=== PATIENT | male | born 1970 | race Caucasian/White ===

== ENCOUNTER 2016-11-11 10:13 | Emergency (ER) | payer BC ==
[2016-11-11] MEDS ORDERED: NS 0.9% 1000 ML* 1,000 ML IV ONE (10:47)
[2016-11-11 11:14] LABS: Hematocrit 40 % (42-52); Mean Corpuscular HGB Conc 32 g/dl (31-36); Mean Corpuscular Hemoglobin 24 pg (27-31); Mean Corpuscular Volume 75 fL (80-94); Mean Platelet Volume 9 um3 (7.4-10.4); Red Blood Count 5.35 10^6/ul (4.0-5.4); Red Cell Distribution Width 19 % (10.5-15); White Blood Count 5.6 10^3/ul (3.5-10.8)
[2016-11-11 11:28] LABS: Albumin 4.2 g/dL (3.2-5.2); BUN/Creatinine Ratio 12.4 (8-20); Calcium 9.4 mg/dL (8.6-10.3); EGFR African American 97.4 (>60); EGFR Non-African American 75.7 (>60); Globulin 2.8 g/dL (2-4); Potassium 4.2 mmol/L (3.5-5.0); Total Bilirubin 0.5 mg/dL (0.2-1.0)
[2016-11-11] MEDS ORDERED: Iodixanol* (CONTRAST) 320 MG/ML 100 ML SDV IV ONE (12:12)
--- NOTE | 2016-11-11 13:15 | RAD ---
HISTORY: Neck pain COMPARISONS: None TECHNIQUE: Multiple contiguous axial CT scans were obtained of the head and neck After the administration of nonionic intravenous contrast timed to the systemic arterial phase of contrast enhancement. Coronal and sagittal multiplanar reformations are submitted for review. Multiple 3-D maximum intensity projection reconstructions are also submitted for review. FINDINGS: CTA NECK: AORTIC ARCH: There is a normal three-vessel branching pattern of the aortic arch. There is no ostial or proximal stenosis of the cephalic great vessels. RIGHT VERTEBRAL ARTERY: The right vertebral artery is patent along its course, without stenosis. LEFT VERTEBRAL ARTERY: The left vertebral artery is patent along its course, without stenosis. DOMINANCE: The vertebral arteries are codominant. RIGHT COMMON CAROTID ARTERY: The right common carotid artery is patent. The right carotid bifurcation occurs at C5 RIGHT INTERNAL CAROTID ARTERY: There is no right internal carotid artery stenosis by NASCET criteria. RIGHT EXTERNAL CAROTID ARTERY: The right external carotid artery is unremarkable. LEFT COMMON CAROTID ARTERY: The left common carotid artery is patent. The left carotid bifurcation occurs at C5 LEFT INTERNAL CAROTID ARTERY: There is no left internal carotid artery stenosis by NASCET criteria. LEFT EXTERNAL CAROTID ARTERY: The left external carotid artery is unremarkable. VENOUS CIRCULATION: The venous system is unremarkable. SALIVARY GLANDS: The parotid glands, submandibular glands, sublingual glands are normal. NASAL CAVITY/NASOPHARYNX: The nasal cavity and nasopharynx are normal. ORAL CAVITY/OROPHARYNX: The oral cavity is obscured by streak artifact from dental amalgam. The visualized oral cavity and oropharynx are unremarkable. LARYNGEAL APPARATUS/HYPOPHARYNX: The laryngeal apparatus and hypopharynx are normal. UPPER AIRWAY/UPPER ESOPHAGUS: The visualized upper airway and esophagus are normal. LUNG APICES: The lung apices are clear. THYROID GLAND: The thyroid gland is normal. LYMPH NODES: There is no lymphadenopathy by size criteria. BONES AND SOFT TISSUES: No bone or soft tissue abnormalities are noted. CTA HEAD: INTRACRANIAL CIRCULATION: There is no aneurysm, vascular malformation, occlusion, or stenosis of the visualized intracranial circulation. The anterior communicating artery complex is clear. Bilateral posterior communicating arteries are identified. VENOUS CIRCULATION: The venous system is unremarkable. PERFUSION: There is no obvious parenchymal perfusion deficit. HEMORRHAGE/INFARCT: There is no hemorrhage or acute infarct. MASSES/SHIFT: There is no mass or shift. EXTRA-AXIAL SPACES: There are no extra-axial fluid collections. SULCI AND VENTRICLES: The sulci and ventricles are normal in size and position for the patient's stated age. CEREBRUM: There are no focal parenchymal abnormalities. BRAINSTEM: There are no focal parenchymal abnormalities. CEREBELLUM: There are no focal parenchymal abnormalities. PARANASAL SINUSES: The paranasal sinuses are clear. ORBITS: The orbits are unremarkable. BONES AND SOFT TISSUE: Mild degenerative changes are noted OTHER: There is no abnormal enhancement. IMPRESSION: 1. NO INTERNAL CAROTID ARTERY STENOSIS BY NASCET CRITERIA. 2. NO ANEURYSM, VASCULAR MALFORMATION, OCCLUSION, OR STENOSIS OF THE VISUALIZED INTRACRANIAL CIRCULATION.. CPT II Codes: 3100F
--- NOTE | 2016-11-11 15:44 | ED ---
Alicia Krishnan Anna, scribed for Alanna Potter MD on 11/11/16 at 1045 . HPI Chest Pain - HPI Summary HPI Summary: Patient is a 46 y/o male coming to [facility] presenting with mid-sternal CP that began this morning at 0800. He describes the severity of the pain as 4/10. He felt dizzy this morning and was running errands when he began to feel the chest pain. The pain extended through his right neck and the top of his jaw on the right side. He felt some right-sided facial numbness at 0830. His face feels less numb now but does feel achy. He now has a GOINS. Denies Hx of headaches. 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 His history is significant for DM and smoking. - History of Current Complaint Chief Complaint: EDChestPainROMI Time Seen by Provider: 11/11/16 10:30 Hx Obtained From: Patient Onset/Duration: Started Hours Ago, Still Present Timing: Constant, Lasting Hours Initial Severity: Moderate Current Severity: Moderate Pain Intensity: 4 Pain Scale Used: 0-10 Numeric Chest Pain Location: Mid Sternal Chest Pain Radiates: Yes Chest Pain Radiates To:: Jaw, Neck - Allergy/Home Medications Allergies/Adverse Reactions: Allergies Allergy/AdvReac Type Severity Reaction Status Date / Time No Known Allergies Allergy Verified 06/01/15 09:59 PMH/Surg Hx/FS Hx/Imm Hx Endocrine/Hematology History: Reports: Hx Diabetes - INSULIN PUMP Cardiovascular History: Denies: Hx Hypertension, Hx Pacemaker/ICD History: Denies: Hx Renal Disease Musculoskeletal History: Denies: Hx Rheumatoid Arthritis, Hx Osteoporosis Sensory History: Denies: Hx Hearing Aid Psychiatric History: Reports: Hx Panic Disorder - ANXIETY - Surgical History Surgery Procedure, Year, and Place: VASECTOMY Infectious Disease History: No Infectious Disease History: Denies: Traveled Outside the [place] in Last 30 Days - Family History Known Family History: Positive: Cardiac Disease - Hx Mother, >age 55 - Social History 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 Lives: With Family - with and kids Alcohol Use: Weekly Hx Substance Use: No Substance Use Type: Reports: None Smoking Status (MU): Heavy Every Day Tobacco Smoker Type: Cigarettes Amount Used/How Often: 1/2 PK DAILY Review of Systems Positive: Chest Pain Positive: Arthralgia Neurological: Other - dizziness Positive: Headache, Numbness All Other Systems Reviewed And Are Negative: Yes Physical Exam Triage Information Reviewed: Yes Vital Signs On Initial Exam: Initial Vitals Temp Pulse Resp BP Pulse Ox 95.5 F 69 18 154/82 100 11/11/16 10:15 11/11/16 10:15 11/11/16 10:15 11/11/16 10:15 11/11/16 10:15 Vital Signs Reviewed: Yes Appearance: Positive: Well-Appearing, No Pain Distress Skin: Positive: Warm, Skin Color Reflects Adequate Perfusion, Dry Eyes: Positive: EOMI, TIMI ENT: Positive: Pharynx normal, TMs normal Neck: Positive: Supple, Nontender Respiratory/Lung Sounds: Positive: Clear to Auscultation, Breath Sounds Present Cardiovascular: Positive: RRR. Negative: Murmur, Rub, Other - gallop Abdomen Description: Positive: Nontender, Soft Bowel Sounds: Positive: Present Musculoskeletal: Positive: Strength/ROM Intact. Negative: Edema Left, Edema Right Neurological: Positive: Normal, Sensory/Motor Intact, Alert, Oriented to Person Place, Time, CN Intact II-III - II-XII Psychiatric: Positive: Affect/Mood Appropriate Diagnostics - Vital Signs Vital Signs Temp Pulse Resp BP Pulse Ox 11/11/16 10:33 97.7 F 66 18 128/76 100 11/11/16 10:30 66 20 126/76 99 11/11/16 10:24 73 99 11/11/16 10:23 128/76 11/11/16 10:15 95.5 F 69 18 154/82 100 - Laboratory Lab Results: Lab Results 11/11/16 11/11/16 11/11/16 Range/Units 10:30 10:30 10:30 WBC 5.6 (3.5-10.8) 10^3/ul RBC 5.35 (4.0-5.4) 10^6/ul Hgb 13.0 L (14.0-18.0) g/dl Hct 40 L (42-52) % MCV 75 L (80-94) fL MCH 24 L (27-31) pg MCHC 32 (31-36) g/dl RDW 19 H (10.5-15) % Plt Count 212 (150-450) 10^3/ul MPV 9 (7.4-10.4) um3 Neut % (Auto) 57.6 (38-83) % Lymph % (Auto) 28.5 (25-47) % [place] % (Auto) 11.1 H (1-9) % Eos % (Auto) 1.6 (0-6) % Baso % (Auto) 1.2 (0-2) % Absolute Neuts (auto) 3.2 (1.5-7.7) 10^3/ul Absolute Lymphs (auto) 1.6 (1.0-4.8) 10^3/ul Absolute Monos (auto) 0.6 (0-0.8) 10^3/ul Absolute Eos (auto) 0.1 (0-0.6) 10^3/ul Absolute Basos (auto) 0.1 (0-0.2) 10^3/ul Absolute Nucleated RBC 0 10^3/ul Nucleated RBC % 0.1 Sodium 134 (133-145) mmol/L Potassium 4.2 (3.5-5.0) mmol/L Chloride 101 (101-111) mmol/L Carbon Dioxide 29 (22-32) mmol/L Anion Gap 4 (2-11) mmol/L BUN 13 (6-24) mg/dL Creatinine 1.05 (0.67-1.17) mg/dL Est GFR ( Amer) 97.4 (>60) Est GFR (Non-Af Amer) 75.7 (>60) BUN/Creatinine Ratio 12.4 (8-20) Glucose 129 H (70-100) mg/dL POC Glucose (mg/dL) (74-106) mg/dL Lactic Acid 0.7 (0.5-2.0) mmol/L Calcium 9.4 (8.6-10.3) mg/dL Total Bilirubin 0.50 (0.2-1.0) mg/dL AST 15 (13-39) U/L ALT 15 (7-52) U/L Alkaline Phosphatase 105 H (34-104) U/L Troponin I 0.00 (<0.04) ng/mL Total Protein 7.0 (6.4-8.9) g/dL Albumin 4.2 (3.2-5.2) g/dL Globulin 2.8 (2-4) g/dL Albumin/Globulin Ratio 1.5 (1-3) 03/24/17 03/24/17 Range/Units 12:26 14:40 WBC (3.5-10.8) 10^3/ul RBC (4.0-5.4) 10^6/ul Hgb (14.0-18.0) g/dl Hct (42-52) % MCV (80-94) fL MCH (27-31) pg MCHC (31-36) g/dl RDW (10.5-15) % Plt Count (150-450) 10^3/ul MPV (7.4-10.4) um3 Neut % (Auto) (38-83) % Lymph % (Auto) (25-47) % [place] % (Auto) (1-9) % Eos % (Auto) (0-6) % Baso % (Auto) (0-2) % Absolute Neuts (auto) (1.5-7.7) 10^3/ul Absolute Lymphs (auto) (1.0-4.8) 10^3/ul Absolute Monos (auto) (0-0.8) 10^3/ul Absolute Eos (auto) (0-0.6) 10^3/ul Absolute Basos (auto) (0-0.2) 10^3/ul Absolute Nucleated RBC 10^3/ul Nucleated RBC % Sodium (133-145) mmol/L Potassium (3.5-5.0) mmol/L Chloride (101-111) mmol/L Carbon Dioxide (22-32) mmol/L Anion Gap (2-11) mmol/L BUN (6-24) mg/dL Creatinine (0.67-1.17) mg/dL Est GFR ( Amer) (>60) Est GFR (Non-Af Amer) (>60) BUN/Creatinine Ratio (8-20) Glucose (70-100) mg/dL POC Glucose (mg/dL) 85 (74-106) mg/dL Lactic Acid (0.5-2.0) mmol/L Calcium (8.6-10.3) mg/dL Total Bilirubin (0.2-1.0) mg/dL AST (13-39) U/L ALT (7-52) U/L Alkaline Phosphatase (34-104) U/L Troponin I 0.00 (<0.04) ng/mL Total Protein (6.4-8.9) g/dL Albumin (3.2-5.2) g/dL Globulin (2-4) g/dL Albumin/Globulin Ratio (1-3) Result Diagrams: 11/11/16 10:30 11/11/16 10:30 Lab Statement: Any lab studies that have been ordered have been reviewed, and results considered in the medical decision making process. - CT Head/Neck CTA CT Interpretation: No Acute Changes CT Interpretation Completed By: Radiologist - IMPRESSION: 1. NO INTERNAL CAROTID ARTERY STENOSIS BY NASCET CRITERIA. 2. NO ANEURYSM, VASCULAR MALFORMATION, OCCLUSION, OR STENOSIS OF THE VISUALIZED INTRACRANIAL CIRCULATION.. - EKG 1040 Cardiac Rate: NL - 67 bpm EKG Rhythm: Sinus Rhythm ST Segment: Normal Ectopy: None 1436 Cardiac Rate: NL - 56 bpm EKG Rhythm: Sinus Rhythm ST Segment: Normal Ectopy: None EKG Interpretation: No Qs. No ST abnormalities. Re-Evaluation - Re-Evaluation First Eval Re-Evaluation Time: 13:27 Comment: Discussed CTA results and plan of care with patient, including CXR and repeat troponin. Patient agrees with plan. Second Eval Re-Evaluation Time: 15:27 Comment: Discussed repeat troponin results and plans for a follow up stress test. Patient agrees with plan. Chest Pain Course/Dx - Course Course Of Treatment: pt with several symptoms this am with chest pain with left sided facial numbness and neck pain at 830 am cta head and neck negative, two trops and two ekgs negative. Pt aware he needs to get an outpt stress test. Case was run by Dr. Tracy of neurology who agrees with the care - Diagnoses Provider Diagnoses: Chest pain - Provider Notifications Discussed Care Of Patient With: Dr. Tracy (neurologist) at 1404. Agrees that patient will be safe to discharge. Discharge - Discharge Plan Condition: Stable Disposition: HOME Patient Education Materials: Cardiac Stress Test (GEN), Chest Pain (ED) Referrals: Sarwat Davis MD [Primary Care Provider] - Additional Instructions: Follow up with primary care physician within 48 hours for stress test. Return to the emergency department for changing or worsening symptoms. NIH Scale - NIH Scale Level of Consciousness: Alert/Keenly Responsive Ask Patient the Month and His/Her Age: Both Correct Ask Pt to Open/Close Eyes and Supervisor Delivery Department/Release Non-Paretic Hand: Both Correctly Best Gaze (Only Horizontal Eye Movement): Normal Visual Field Testing: No Visual Loss Facial Paresis-Pt to Smile & Close Eyes or Grimace Symmetry: Normal/Symmetrical Motor Function - Right Arm: No Drift-Holds 10 Seconds Motor Function - Left Arm: No Drift-Holds 10 Seconds Motor Function - Right Leg: No Drift-Holds 10 Seconds Motor Function - Left Leg: No Drift-Holds 10 Seconds Limb Ataxia-Must be out of Proportion to Weakness Present: Absent Sensory (Use Pinprick to Test Arms/Legs/Trunk/Face): Normal Best Language (Describe Picture, Name Items): No Aphasia Dysarthria (Read Several Words): Normal Extinction and Inattention: No Abnormality Total Score: 0 The documentation as recorded by the Alicia clinton Anna accurately reflects the service I personally performed and the decisions made by me, Alanna Potter MD.
[2016-11-11 16:00] VITALS: BP 126/69
== END 2016-11-11 16:01 | disposition home or self-care (01) ==
LOC: ED 10:13
DX: R07.9 Chest pain, unspecified (principal); R51 Headache; F17.210 Nicotine dependence, cigarettes, uncomplicated
CPT/HCPCS: 36415; 70496; 70498; 80053; 83605; 84484; 85025; 93005; 99283; Q9967

== ENCOUNTER 2017-03-19 16:57 | Emergency (ER) | payer BC ==
[2017-03-19 17:04] VITALS: BP 113/65
--- NOTE | 2017-03-19 17:05 | UC ---
Respiratory Complaint HPI - HPI Summary HPI Summary: 46 YEAR OLD MALE PRESENTS WITH COMPLAINS OF COUGH WORSE WHILE LYING DOWN. - History of Current Complaint Chief Complaint: UCRespiratory Stated Complaint: COUGH Time Seen by Provider: 03/19/17 17:04 - Allergies/Home Medications Allergies/Adverse Reactions: Allergies Allergy/AdvReac Type Severity Reaction Status Date / Time No Known Allergies Allergy Verified 06/01/15 09:59 PMH/Surg Hx/FS Hx/Imm Hx Previously Healthy: Yes - Surgical History Surgical History: Yes Surgery Procedure, Year, and Place: VASECTOMY - Family History Known Family History: Positive: Cardiac Disease - Hx Mother, >age 55 - Social History Alcohol Use: Weekly Substance Use Type: None Smoking Status (MU): Heavy Every Day Tobacco Smoker Type: Cigarettes Amount Used/How Often: 1/2 PK DAILY Household Exposure Type: Cigarettes Review of Systems Constitutional: Negative Skin: Negative Eyes: Negative ENT: Sore Throat, Nasal Discharge, Sinus Congestion, Sinus Pain/Tenderness Respiratory: Cough Cardiovascular: Negative Gastrointestinal: Negative Genitourinary: Negative Motor: Negative Neurovascular: Negative Musculoskeletal: Negative Neurological: Negative Psychological: Negative All Other Systems Reviewed And Are Negative: Yes Physical Exam Triage Information Reviewed: Yes Vital Signs: Initial Vital Signs Temp 37.2 C 03/19/17 16:59 Pulse 77 03/19/17 16:59 Resp 18 03/19/17 16:59 BP 113/65 03/19/17 16:59 Pulse Ox 99 03/19/17 16:59 Eye Exam: Normal ENT Exam: Normal Dental Exam: Normal Neck exam: Normal Neck: Positive: 1 Respiratory Exam: Normal Cardiovascular Exam: Normal Abdominal Exam: Normal Musculoskeletal Exam: Normal Neurological Exam: Normal Psychological Exam: Normal Skin Exam: Normal UC Diagnostic Evaluation - Laboratory O2 Sat by Pulse Oximetry: 99 Respiratory Course/Dx - Differential Dx/Diagnosis Provider Diagnoses: ALLERGIC RHINNITIS Discharge - Discharge Plan Condition: Stable Disposition: HOME Prescriptions: Amoxicillin/Clavulanate TAB* [Augmentin TAB 875*] 875 mg PO BID #20 tab LoraTADine TAB(NF) [Claritin 10 MG TAB(NF)] 10 mg PO DAILY #30 tab Magic M W2 Bg/Maal/Nyst/Lido* 15 ml SWISH SPIT QID #120 ml guaiFENesin/CODIEN 100MG-10MG* [Robitussin AC 100Mg-10Mg*] 5 ml PO Q6H PRN #120 udc MDD 20 ml PRN Reason: Cough Patient Education Materials: Pharyngitis (ED), Allergic Rhinitis (ED) Referrals: Sarwat Davis MD [Primary Care Provider] -
--- NOTE | 2017-03-19 18:05 | RAD ---
INDICATION: Cough COMPARISON: Most recent comparison chest x-rays dated April 28, 2015 TECHNIQUE: PA and lateral views of the chest were obtained. FINDINGS: The heart and mediastinum are normal in size and contour. The lungs are grossly clear. There is no evidence of large pleural effusion. Visualized bones are normal for the patient's age. There is no radiographic evidence of free air beneath the diaphragm IMPRESSION: No radiographic evidence of acute cardiopulmonary disease.
== END 2017-03-19 18:11 | disposition home or self-care (01) ==
LOC: UCEAST 16:57
DX: J30.9 Allergic rhinitis, unspecified (principal); F17.210 Nicotine dependence, cigarettes, uncomplicated
CPT/HCPCS: 71020; 99212; G0463

== ENCOUNTER 2017-08-06 13:55 | Emergency (ER) | payer BC ==
[2017-08-06 14:50] LABS: Hematocrit 38 % (42-52); Hemoglobin 12.5 g/dl (14.0-18.0); Mean Corpuscular HGB Conc 33 g/dl (31-36); Mean Corpuscular Hemoglobin 25 pg (27-31); Mean Corpuscular Volume 76 fL (80-94); Mean Platelet Volume 8 um3 (7.4-10.4); Red Blood Count 5.04 10^6/ul (4.0-5.4); Red Cell Distribution Width 18 % (10.5-15); White Blood Count 7.3 10^3/ul (3.5-10.8)
[2017-08-06 15:01] LABS: ALT 21 U/L (7-52); AST 20 U/L (13-39); Albumin 4.3 g/dL (3.2-5.2); Alkaline Phosphatase 108 U/L (34-104); Amylase 32 U/L (29-103); Anion Gap 7 mmol/L (2-11); BUN/Creatinine Ratio 9.6 (8-20); Blood Urea Nitrogen 10 mg/dL (6-24); CO2 Carbon Dioxide 26 mmol/L (22-32); Calcium 9.4 mg/dL (8.6-10.3); Chloride 100 mmol/L (101-111); Creatine Kinase 161 U/L (10-223); EGFR African American 98.4 (>60); EGFR Non-African American 76.5 (>60); Globulin 2.6 g/dL (2-4); Glucose 184 mg/dL (70-100); Lipase < 10 U/L (11.0-82.0); Potassium 3.7 mmol/L (3.5-5.0); Sodium 133 mmol/L (133-145); Total Protein 6.9 g/dL (6.4-8.9)
[2017-08-06] MEDS: Iodixanol* (CONTRAST) 320 MG/ML 100 ML SDV IV ONE ×2 (15:45→17:25)
--- NOTE | 2017-08-06 16:04 | RAD ---
HISTORY: Fall, pain COMPARISONS: November 11, 2016 TECHNIQUE: Multiple contiguous axial CT scans were obtained of the head without intravenous contrast. FINDINGS: HEMORRHAGE/INFARCT: There is no hemorrhage or acute infarct. MASSES/SHIFT: There is no mass or shift. EXTRA-AXIAL SPACES: There are no extra-axial fluid collections. SULCI AND VENTRICLES: The sulci and ventricles are normal in size and position for the patient's stated age. CEREBRUM: There are no focal parenchymal abnormalities. BRAINSTEM: There are no focal parenchymal abnormalities. CEREBELLUM: There are no focal parenchymal abnormalities. VESSELS: The vessels are grossly normal. PARANASAL SINUSES: The paranasal sinuses are clear. ORBITS: The orbits are unremarkable. BONES AND SOFT TISSUE: No bone or soft tissue abnormalities are noted. OTHER: None IMPRESSION: NO ACUTE INTRACRANIAL PATHOLOGY.
--- NOTE | 2017-08-06 16:06 | RAD ---
HISTORY: Fall, pain, trauma COMPARISONS: None TECHNIQUE: Multiple contiguous axial CT scans were obtained of the cervical spine without intravenous contrast, with coronal and sagittal multiplanar reformations. FINDINGS: BRAIN: The visualized brain is unremarkable CENTRAL CANAL: Evaluation of the central canal is limited on CT technique, however there is no obvious canalicular mass or epidural hemorrhage. ALIGNMENT: There is straightening of the normal cervical lordosis. VERTEBRAL BODIES: The odontoid process is intact. The atlantoaxial intervals are symmetric. The vertebral bodies are normal in attenuation, without fracture. There is anterolateral marginal osteophyte formation at C6-C7. JOINTS: There is osteoarthritis of the atlantoaxial articulation and to lesser extent of the uncovertebral articulations. MUSCULATURE: Normal INTERVERTEBRAL DISCS: There is diffuse loss of intervertebral disc height. AXIAL IMAGES: On axial images, there is no osseous neural foraminal narrowing or central canal stenosis. SOFT TISSUES: The visualized soft tissues of the neck are unremarkable. The prevertebral fat stripe is preserved. OTHER: None. IMPRESSION: 1. STRAIGHTENING OF THE CERVICAL LORDOSIS. 2. MILD DEGENERATIVE DISC DISEASE AND OSTEOARTHRITIS, MOST PRONOUNCED AT C6-C7. 3. NO ACUTE OSSEOUS INJURY TO THE CERVICAL SPINE
--- NOTE | 2017-08-06 16:32 | RAD ---
HISTORY: Fall, left rib pain COMPARISONS: March 19, 2017 VIEWS: 1: frontal portable view of the chest at 4:18 PM FINDINGS: LINES AND TUBES: None. CARDIOMEDIASTINAL SILHOUETTE: The cardiomediastinal silhouette is normal for portable technique. PLEURA: The costophrenic angles are sharp. No pleural abnormalities are noted. LUNG PARENCHYMA: The lungs are clear. ABDOMEN: The upper abdomen is clear. There is no subphrenic gas. BONES AND SOFT TISSUES: No bone or soft tissue abnormalities are noted. IMPRESSION: NO ACTIVE CARDIOPULMONARY DISEASE.
[2017-08-06 16:38] LABS: Urine Bilirubin Negative (Negative); Urine Glucose Negative (Negative); Urine Nitrite Negative (Negative)
[2017-08-06] MEDS ORDERED: LORazepam INJ* 2 MG/ML 1 ML VIAL IV PUSH ONE (16:39)
--- NOTE | 2017-08-06 17:47 | RAD ---
HISTORY: Fall from ladder, left-sided rib pain COMPARISONS: None TECHNIQUE: Multiple contiguous axial CT scans were obtained of the chest, abdomen, and pelvis after the administration of intravenous contrast. Coronal and sagittal multiplanar reformations are submitted for review.. Oral contrast was not administered. Delayed images were obtained through the abdomen and pelvis. FINDINGS: CHEST NECK AND THYROID: The lower neck and thyroid are unremarkable. CHEST WALL: There is no lower cervical, axillary, or supraclavicular lymphadenopathy by size criteria. HEART AND PERICARDIUM: The heart is unremarkable. AORTA AND PULMONARY VASCULATURE: The aorta and pulmonary vasculature are normal. MEDIASTINUM: There is no mediastinal lymphadenopathy by size criteria. KAT: There is no hilar lymphadenopathy by size criteria. AIRWAY AND ESOPHAGUS: The airway is unremarkable, without endobronchial filling defect. The esophagus is grossly normal. LUNG PARENCHYMA: The lungs are clear. PLEURA: No pleural abnormalities are noted. BONES AND SOFT TISSUES: Minimal degenerative changes are noted. ABDOMEN/PELVIS: LIVER: The liver is normal in shape, size, contour, and attenuation. BILE DUCTS: There is no intrahepatic or extrahepatic biliary dilatation. GALLBLADDER: The gallbladder is normal, without pericholecystic inflammatory change. PANCREAS: The pancreas is normal, without mass or ductal dilatation. SPLEEN: Normal in size and appearance. UPPER GI TRACT: Evaluation of the gastrointestinal tract is limited by incomplete gastric distention. The upper GI tract is unremarkable. SMALL BOWEL & MESENTERY: The small bowel is normal in contour, course, and caliber. There is no obstruction or dilatation. COLON: The colon is normal in contour, course, caliber. There is no pericolonic inflammatory change. ADRENALS: Normal bilaterally. KIDNEYS: A small renal cyst is noted on the right. There is no hydronephrosis or nephrolithiasis. BLADDER: The bladder is smooth in contour. PELVIC ORGANS: The prostate gland is normal. The seminal vesicles are symmetric. AORTA: The aorta is normal. IVC: Unremarkable LYMPH NODES: There is no lymphadenopathy by size criteria. ABDOMINAL WALL: There is no evidence for abdominal wall hernia. BONES AND SOFT TISSUES: There is grade 2 anterolisthesis of L5 on S1 with bilateral pars defects. OTHER: There is no free intraperitoneal fluid or free intraperitoneal gas. There is no active arterial extravasation. IMPRESSION: SPONDYLOLYSIS WITH SPONDYLOLISTHESIS AT L5-S1. NO ACUTE CT PATHOLOGY OF THE CHEST, ABDOMEN, OR PELVIS.
[2017-08-06] MEDS ORDERED: Cyclobenzaprine TAB* 10 MG PO ONE (19:09)
[2017-08-06] MEDS ORDERED: HYDROcodone/ACETAMIN 5-325 MG* 1 TAB PO ONE ×2 (19:10→19:12)
[2017-08-06 19:30] VITALS: BP 110/76
--- NOTE | 2017-08-06 20:27 | ED ---
Solomon Krishnan Gabriel, scribed for Leslie Washington MD on 08/06/17 at 1611 . 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 The patient rates the pain 6/10 in severity. Patient reports right sided rib.. Patient states he was hanging [place] lights and fell off a ladder about 4 feet above the ground. Patient was diagnosed with type I DM when he was 29 years old. He has previously been in DKA. Current vitals are BP of 141 /92 and a pulse of 99. - History of Current Complaint Chief Complaint: EDTraumaMultiple Stated Complaint: FALL Time Seen by Provider: 08/06/17 14:03 Hx Obtained From: Patient Mechanism of Injury: Fall Ambulatory at the Scene: Yes Loss of Consciousness: no loss of consciousness Onset/Duration: Still Present Onset of Pain: Immediate Onset Severity: Moderate Current Severity: Moderate Pain Intensity: 6 Pain Scale Used: 0-10 Numeric Location: Abdomen/Pelvis - rib pain Aggravating Factor(s): Nothing Alleviating Factor(s): Nothing Associated Signs & Symptoms: Positive: Other: - pain due to fall - Allergy/Home Medications Allergies/Adverse Reactions: Allergies Allergy/AdvReac Type Severity Reaction Status Date / Time No Known Allergies Allergy Verified 04/05/17 13:20 PMH/Surg Hx/FS Hx/Imm Hx Previously Healthy: No Endocrine/Hematology History: Reports: Hx Diabetes - INSULIN PUMP, type 1 dm Cardiovascular History: Denies: Hx Hypertension, Hx Pacemaker/ICD, Other Cardiovascular Problems/ Disorders History: Denies: Hx Renal Disease Musculoskeletal History: Denies: Hx Rheumatoid Arthritis, Hx Osteoporosis Sensory History: Denies: Hx Hearing Aid Psychiatric History: Reports: Hx Panic Disorder - PANIC/ANXIETY - Surgical History Surgery Procedure, Year, and Place: VASECTOMY Infectious Disease History: No Infectious Disease History: Denies: Traveled Outside the [place] in Last 30 Days - Family History Known Family History: Positive: Cardiac Disease - Hx Mother, >age 55 - Social History Alcohol Use: Weekly Hx Substance Use: No Substance Use Type: Reports: None Hx Tobacco Use: Yes - X'S 25 YRS Smoking Status (MU): Heavy Every Day Tobacco Smoker Type: Cigarettes Amount Used/How Often: 1/2 PK DAILY Review of Systems Negative: Fever Positive: Other - right sided rib pain All Other Systems Reviewed And Are Negative: Yes Physical Exam - Summary Physical Exam Summary: Appearance: Well-appearing, moderate pain distress, Well-nourished Skin: Warm, color reflects adequate perfusion Head: Normal Head/Face Eyes: Conjunctiva clear ENT: Normal appearance Neck: Supple Respiratory: Lungs clear, Normal breath sounds, no respiratory distress Cardio: RRR, No murmur, pulses normal, brisk capillary refill Abdomen: soft, nontender Bowel sounds: present Musculoskeletal: Strength Intact/ ROM intact, muscles are spasming Neuro: Alert, muscle tone normal, ED: facial symmetry, speech normal, sensory/ motor intact Detailed Neuro Exam: A&Ox3, CN II-XII intact, Motor function 5/5, Sensations intact, Gait WNL Psychological: Normal Triage Information Reviewed: Yes Vital Signs On Initial Exam: Initial Vitals Temp Pulse Resp BP Pulse Ox 97.3 F 73 18 119/65 99 08/06/17 14:04 08/06/17 14:04 08/06/17 14:04 08/06/17 14:04 08/06/17 14:04 Vital Signs Reviewed: Yes Diagnostics - Vital Signs Vital Signs Temp Pulse Resp BP Pulse Ox 08/06/17 15:30 16 112/66 08/06/17 15:00 17 115/68 08/06/17 14:30 16 99/61 08/06/17 14:28 12 08/06/17 14:27 102/60 08/06/17 14:04 97.3 F 73 18 119/65 99 - Laboratory Lab Results: Lab Results 08/06/17 08/06/17 08/06/17 Range/Units 14:08 14:33 14:33 WBC 7.3 (3.5-10.8) 10^3/ul RBC 5.04 (4.0-5.4) 10^6/ul Hgb 12.5 L (14.0-18.0) g/dl Hct 38 L (42-52) % MCV 76 L (80-94) fL MCH 25 L (27-31) pg MCHC 33 (31-36) g/dl RDW 18 H (10.5-15) % Plt Count 208 (150-450) 10^3/ul MPV 8 (7.4-10.4) um3 Neut % (Auto) 62.6 (38-83) % Lymph % (Auto) 27.3 (25-47) % [place] % (Auto) 7.5 (1-9) % Eos % (Auto) 1.5 (0-6) % Baso % (Auto) 1.1 (0-2) % Absolute Neuts (auto) 4.6 (1.5-7.7) 10^3/ul Absolute Lymphs (auto) 2.0 (1.0-4.8) 10^3/ul Absolute Monos (auto) 0.5 (0-0.8) 10^3/ul Absolute Eos (auto) 0.1 (0-0.6) 10^3/ul Absolute Basos (auto) 0.1 (0-0.2) 10^3/ul Absolute Nucleated RBC 0 10^3/ul Nucleated RBC % 0 INR (Anticoag Therapy) (0.77-1.02) Sodium 133 (133-145) mmol/L Potassium 3.7 (3.5-5.0) mmol/L Chloride 100 L (101-111) mmol/L Carbon Dioxide 26 (22-32) mmol/L Anion Gap 7 (2-11) mmol/L BUN 10 (6-24) mg/dL Creatinine 1.04 (0.67-1.17) mg/dL Est GFR ( Amer) 98.4 (>60) Est GFR (Non-Af Amer) 76.5 (>60) BUN/Creatinine Ratio 9.6 (8-20) Glucose 184 H (70-100) mg/dL POC Glucose (mg/dL) 189 H (70-100) mg/dL Lactic Acid (0.5-2.0) mmol/L Calcium 9.4 (8.6-10.3) mg/dL Total Bilirubin 0.70 (0.2-1.0) mg/dL AST 20 (13-39) U/L ALT 21 (7-52) U/L Alkaline Phosphatase 108 H (34-104) U/L Total Creatine Kinase 161 (10-223) U/L Troponin I 0.00 (<0.04) ng/mL Total Protein 6.9 (6.4-8.9) g/dL Albumin 4.3 (3.2-5.2) g/dL Globulin 2.6 (2-4) g/dL Albumin/Globulin Ratio 1.7 (1-3) Amylase 32 (29-103) U/L Lipase < 10 L (11.0-82.0) U/L Blood Type Antibody Screen 08/06/17 08/06/17 08/06/17 Range/Units 14:33 14:33 14:33 WBC (3.5-10.8) 10^3/ul RBC (4.0-5.4) 10^6/ul Hgb (14.0-18.0) g/dl Hct (42-52) % MCV (80-94) fL MCH (27-31) pg MCHC (31-36) g/dl RDW (10.5-15) % Plt Count (150-450) 10^3/ul MPV (7.4-10.4) um3 Neut % (Auto) (38-83) % Lymph % (Auto) (25-47) % [place] % (Auto) (1-9) % Eos % (Auto) (0-6) % Baso % (Auto) (0-2) % Absolute Neuts (auto) (1.5-7.7) 10^3/ul Absolute Lymphs (auto) (1.0-4.8) 10^3/ul Absolute Monos (auto) (0-0.8) 10^3/ul Absolute Eos (auto) (0-0.6) 10^3/ul Absolute Basos (auto) (0-0.2) 10^3/ul Absolute Nucleated RBC 10^3/ul Nucleated RBC % INR (Anticoag Therapy) 0.94 (0.77-1.02) Sodium (133-145) mmol/L Potassium (3.5-5.0) mmol/L Chloride (101-111) mmol/L Carbon Dioxide (22-32) mmol/L Anion Gap (2-11) mmol/L BUN (6-24) mg/dL Creatinine (0.67-1.17) mg/dL Est GFR ( Amer) (>60) Est GFR (Non-Af Amer) (>60) BUN/Creatinine Ratio (8-20) Glucose (70-100) mg/dL POC Glucose (mg/dL) (70-100) mg/dL Lactic Acid 2.0 (0.5-2.0) mmol/L Calcium (8.6-10.3) mg/dL Total Bilirubin (0.2-1.0) mg/dL AST (13-39) U/L ALT (7-52) U/L Alkaline Phosphatase (34-104) U/L Total Creatine Kinase (10-223) U/L Troponin I (<0.04) ng/mL Total Protein (6.4-8.9) g/dL Albumin (3.2-5.2) g/dL Globulin (2-4) g/dL Albumin/Globulin Ratio (1-3) Amylase (29-103) U/L Lipase (11.0-82.0) U/L Blood Type A Positive Antibody Screen Negative Result Diagrams: 08/06/17 14:33 08/06/17 14:33 Lab Statement: Any lab studies that have been ordered have been reviewed, and results considered in the medical decision making process. - Radiology CXR Radiology Interpretation Completed By: Radiologist - NO ACTIVE CARDIOPULMONARY DISEASE. ED physician has reviewed this radiology report. - CT CT brain CT Interpretation Completed By: Radiologist - NO ACUTE INTRACRANIAL PATHOLOGY. ED physician has reviewed this radiology report. CT C-spine CT Interpretation Completed By: Radiologist - STRAIGHTENING OF THE CERVICAL LORDOSIS. 2. MILD DEGENERATIVE DISC DISEASE AND OSTEOARTHRITIS, MOST PRONOUNCED AT C6-C7. 3. NO ACUTE OSSEOUS INJURY TO THE CERVICAL SPINE ED physician has reviewed this radiology report. CT ABD/Pelvis CT Interpretation Completed By: Radiologist - SPONDYLOLYSIS WITH SPONDYLOLISTHESIS AT L5-S1. NO ACUTE CT PATHOLOGY OF THE CHEST, ABDOMEN, OR PELVIS. ED physician has reviewed this radiology report. - EKG 1440 Cardiac Rate: NL EKG Rhythm: Sinus Rhythm - at 72 BPM EKG Interpretation: Normal AV/IV CT, normal QTc, negative axis minus 30, LAD EKG Comparison: No Significant Change - in comparison with EKG from 11/11/16 Discharge - Discharge Plan Condition: Stable Disposition: HOME Prescriptions: Cyclobenzaprine TAB* [Flexeril 10 MG TAB*] 10 mg PO TID PRN #20 tab PRN Reason: Pain HYDROcodone/ACETAMIN 5-325 MG* [Beason 5-325 TAB*] 1 tab PO Q4H PRN #12 tab MDD 6 PRN Reason: Pain Patient Education Materials: Rib Contusion (ED) Referrals: Sarwat Davis MD [Primary Care Provider] - Additional Instructions: Your CT's did not show any fractures or serious abnormalities. Follow up with Dr. Davis. Do deep breaths every hour while awake to prevent pneumonia. Return to the ER if any new or worsening symptoms. The documentation as recorded by the Solomon clinton Gabriel accurately reflects the service I personally performed and the decisions made by me, Leslie Washington MD.
== END 2017-08-06 19:35 | disposition home or self-care (01) ==
LOC: ED 13:55
DX: R07.81 Pleurodynia (principal); F17.210 Nicotine dependence, cigarettes, uncomplicated
CPT/HCPCS: 36415; 70450; 71010; 71260; 72125; 74177; 80053; 81003; 82150; 82550; 83605; 83690; 84484; 85025; 85610; 86850; 86900; 86901; 93005; 96374; 99283; A9270-GY; J2060; Q9967

== ENCOUNTER 2019-07-29 07:35 | Emergency (ER) | payer BC ==
[2019-07-29 07:49] VITALS: BP 141/80
--- NOTE | 2019-07-29 08:17 | UC ---
Cardiac HPI - HPI Summary HPI Summary: Mr. Zamora started with 'tight' chest pain in the right parasternal border radiating up into his neck about 20 minutes prior to my seeing him. He was driving from his home in [place] to his job and [place] and stopped at the [employer]. He did not have any shortness of breath but felt flushed, diaphoretic and like he might pass out. He was not nauseated. He is feeling a little bit better by the time I see him although still had some anterior chest pain in the neck pain. - History of Current Complaint Chief Complaint: UCChestPain Stated Complaint: CHEST PAIN Hx Obtained From: Patient Onset/Duration: Sudden Onset Timing: Constant Initial Severity: Moderate Current Severity: Mild Pain Intensity: 2 Chest Pain Location: Mid Sternal, Right Anterior Character: Tightness Aggravating Factor(s): Nothing Alleviating Factor(s): Nothing Associated Signs & Symptoms: Positive: Diaphoresis - Lightheaded - Allergy/Home Medications Allergies/Adverse Reactions: Allergies Allergy/AdvReac Type Severity Reaction Status Date / Time No Known Allergies Allergy Verified 07/29/19 07:49 Home Medications: Home Medications Desvenlafaxine(NF) [Pristiq(NF)] 100 mg PO DAILY 07/29/19 [History Confirmed 05/09] chlordiazePOXIDE CAP* [Librium CAP*] 5 mg PO DAILY WITH MEAL 07/29/19 [History Confirmed 07/29/19] PMH/Surg Hx/FS Hx/Imm Hx Previously Healthy: Yes Endocrine History: Diabetes - Type I for at least 30 years. Taking insulin pump - Surgical History Surgical History: Yes Surgery Procedure, Year, and Place: VASECTOMY - Family History Known Family History: Positive: Cardiac Disease - Hx Mother, >age 55 - Social History Alcohol Use: Weekly Substance Use Type: None Smoking Status (MU): Heavy Every Day Tobacco Smoker Type: Cigarettes Amount Used/How Often: 1/2 PK DAILY Household Exposure Type: Cigarettes Review of Systems All Other Systems Reviewed And Are Negative: Yes Respiratory: Positive: Negative Cardiovascular: Positive: Chest Pain Gastrointestinal: Positive: Negative Motor: Positive: Negative Musculoskeletal: Positive: Negative Is Patient Immunocompromised?: No Physical Exam - Summary Physical Exam Summary: He is nontoxic in appearance with stable vital signs Triage Information Reviewed: Yes Appearance: Well-Appearing Vital Signs: Initial Vital Signs Temp 97.5 F 07/29/19 07:45 Pulse 78 07/29/19 07:45 Resp 20 07/29/19 07:45 BP 141/80 07/29/19 07:45 Pulse Ox 98 07/29/19 07:45 Vital Signs Reviewed: Yes ENT: Positive: Normal ENT inspection Neck: Positive: Supple - Mild right superior trapezius tenderness Respiratory Exam: Other - mild right parasternal tenderness Respiratory: Positive: Lungs clear, Normal breath sounds, No respiratory distress, No accessory muscle use Cardiovascular: Positive: RRR Abdomen Description: Positive: Nontender - . There is Musculoskeletal Exam: Normal Neurological Exam: Normal Diagnostics - EKG Cardiac Rate: NL Cardiac Rhythm: Sinus: Normal Ectopy: None ST Segment: Normal EKG Comparison: No Significant Change - Assessment/Plan Course Of Treatment: His EKG indicates no acute pathology. This may be a musculoskeletal issue however I have no means to evaluate chest pain here at the [facility]. I recommended that we transfer him over to the hospital by ambulance. He did not want to go by ambulance and insisted on driving. I warned him that he could worsen or cause a car accident injuring other people. I recommended he call 911 if she developed any new symptoms or worsened. - Clinical Impression Provider Diagnosis: Chest pain Discharge ED - Sign-Out/Discharge Documenting (check all that apply): Patient Departure All imaging exams completed and their final reports reviewed: No Studies - Discharge Plan Condition: Stable Disposition: HOME-RECOMMEND TO ED Patient Education Materials: Chest Pain (ED) Referrals: Sarwat Davis MD [Primary Care Provider] - Additional Instructions: Please go immediately to the emergency department. You are condition is potentially life threatening. If you change your mind about driving or feel worse please call 911. - Billing Disposition and Condition Condition: STABLE Disposition: Home-Recommend to ED
--- OUTSIDE RECORDS SUMMARY | 2019-07-29 09:18 | XMS REPORT | Continuity of Care Document ---
:1970 External Reference #:[id number] Author Name JAMIN Bell (transmitted by agent of provider Radha Arriola) Address [address] [place] [id number] Care Team Providers Name Role Phone Sarwat Davis MD - Endocrinology, Care Team Information Setup Technician [phone] Diabetes & Metabolism Problems Active Problems Provider Date FH: Angina in 1st degree female Analia Villatoro M.D. Onset: 11/21/2017 relative <65 years Neck pain Mp Chávez M.D. Onset: 04/21/2017 Atrioventricular block, second degree Analia Villatoro M.D. Onset: 02/16/2016 Tobacco use Analia Villatoro M.D. Onset: 02/16/2016 [place] ECHO Schedule Onset: 05/03/2012 Chest pain Eugenia Espino M.D. Onset: 01/31/2012 Electrocardiogram abnormal Eugenia Espino M.D. Onset: 01/31/2012 Social History Type Date Description Comments Sex Unknown Tobacco Use Start: Unknown current cigarette smoker Smoking Status Reviewed: 06/06/19 current cigarette smoker ETOH Use consumes 1 six pack per week Tobacco Use Start: Unknown Patient is a current started smoking at smoker, smokes every age 16, smokes 1/2 day ppd Recreational Drug Use Denies Drug Use Exercise Type/Frequency Does not exercise Allergies, Adverse Reactions, Alerts Description No Known Drug Allergies Medications Active Medications SIG Qnty Indications Ordering Date Provider Lorazepam 1 Tab by mouth Unknown 1mg Tablets twice a day as needed Ibuprofen 1 po tid prn Unknown 200mg Multivitamins 1 by mouth every Unknown Capsules day Humalog via insulin pump Unknown 100Unit/ML Solution as directed Cartridge Ventolin HFA as needed Unknown 108(90Base) mcg/Act Aerosol Modafinil 1 tablet po Amandeep Arriola, 100mg Tablets daily Levothyroxine Sodium 1 tablet po Pravin Enrike, 50mcg daily PIZZA CHEF Tablets Desvenlafaxine Succinate take 1 tablet by Unknown ER mouth once daily 100mg Tablets ER 24HR Chlordiazepoxide HCL 2 cap po twice Amandeep Arriola, 25mg daily MD Capsules Medications Administered in Office Medication SIG Qnty Indications Ordering Provider Date Depomedrol 40MG Susan Savage M.D. 03/23/2017 Injection Immunizations Description No Information Available Vital Signs Date Vital Result Comment 06/06/2019 8:47am Height 72 inches 6'0" Weight 220.00 lb Heart Rate 93 /min BP Systolic 130 mmHg BP Diastolic 82 mmHg Respiratory Rate 18 /min Pain Level 1 BMI (Body Mass Index) 29.8 kg/m2 03/01/2019 1:06pm Height 72 inches 6'0" Weight 223.00 lb with shoes Heart Rate 88 /min BP Systolic Sitting 150 mmHg Lue reg cuff BP Diastolic Sitting 88 mmHg Lue reg cuff BP Systolic Standing 132 mmHg Lue reg cuff BP Diastolic Standing 80 mmHg Lue reg cuff Respiratory Rate 17 /min BMI (Body Mass Index) 30.2 kg/m2 Ejection Fraction 65% date 04/24/12 ECHO Results Description No Information Available Procedures Date Code Description Status 03/01/2019 54051 EKG Tracing & Interpretation Completed Medical Devices Description No Information Available Encounters Type Date Location Provider Dx Diagnosis Office Visit 03/01/2019 [facility] Analia Villatoro, Z82.49 Family hx of 1:10p Of Ofelia Maldonado ischem heart dis and oth dis of the circ sys Z72.0 Tobacco use E10.8 Type 1 diabetes mellitus with unspecified complications I95.1 Orthostatic hypotension H93.11 Tinnitus, right ear Assessments Date Code Description Provider 06/06/2019 M20.012 [place] finger of left finger(s) Rachel Quiroz RPA-C 03/01/2019 Z82.49 Family history of ischemic heart disease and Analia Villatoro M.D. other diseases 03/01/2019 Z72.0 Tobacco use Analia Villatoro M.D. 03/01/2019 E10.8 Type 1 diabetes mellitus with unspecified Analia Villatoro M.D. complications 03/01/2019 I95.1 Orthostatic hypotension Analia Villatoro M.D. 03/01/2019 H93.11 Tinnitus, right ear Analia Villatoro M.D. Plan of Treatment Future Appointment(s):07/03/2019 1:00 pm - Susan Savage M.D. at [facility] at [id number]/06/2019 - Rachel Quiroz, [facility]-CM20.012 [place] finger of left finger(s)Follow up:Follow up: 4 weeks Functional Status Description No Information Available Mental Status Description No Information Available Referrals Description No Information Available
--- OUTSIDE RECORDS SUMMARY | 2019-07-29 09:18 | XMS REPORT | Continuity of Care Document ---
:1970 External Reference #:[id number] Author Name Susan Savage M.D. 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 Onset: 11/21/2017 relative <65 years Neck pain Mp Chávez M.D. Onset: 04/21/2017 Atrioventricular block, second degree Analia Villatoro M.D. Onset: 02/16/2016 Tobacco use Aanlia Villatoro M.D. Onset: 02/16/2016 [place] [facility] Schedule Onset: 05/03/2012 Chest pain Eugenia Espino M.D. Onset: 01/31/2012 Electrocardiogram abnormal Eugenia Espino M.D. 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 03/23/2017 Injection Immunizations Description No Information Available Vital Signs Date Vital Result Comment 07/03/2019 1:18pm Height 72 inches 6'0" Weight 226.75 lb Heart Rate 72 /min BP Systolic 148 mmHg BP Diastolic 74 mmHg Respiratory Rate 16 /min Body Temperature 98.1 F Pain Level 3 BMI (Body Mass Index) 30.7 kg/m2 06/06/2019 8:47am Height 72 inches 6'0" Weight 220.00 lb Heart Rate 93 /min BP Systolic 130 mmHg BP Diastolic 82 mmHg Respiratory Rate 18 /min Pain Level 1 BMI (Body Mass Index) 29.8 kg/m2 Results Description No Information Available Procedures Date Code Description Status 03/01/2019 96789 EKG Tracing & Interpretation Completed Medical Devices Description No Information Available Encounters Type Date Location Provider Dx Diagnosis Office Visit 06/06/2019 [facility] Rachel Quiroz, M20.012 [place] finger of 8:15a at [place] RPA-C left finger(s) Office Visit 03/01/2019 [facility] Analia Villatoro, Z82.49 Family hx of 1:10p Of Ofelia Maldonado ischem heart dis and oth dis of the [facility] sys Z72.0 Tobacco use E10.8 Type 1 diabetes mellitus with unspecified complications I95.1 Orthostatic hypotension H93.11 Tinnitus, right ear Assessments Date Code Description Provider 07/03/2019 M20.012 [place] finger of left finger(s) Susan Savage M.D. 06/06/2019 M20.012 [place] finger of left finger(s) Rachel Quiroz RPA-C 03/01/2019 Z82.49 Family history of ischemic heart disease and Analia Villatoro M.D. other diseases 03/01/2019 Z72.0 Tobacco use Analia Vilaltoro M.D. 03/01/2019 E10.8 Type 1 diabetes mellitus with unspecified Analia Villatoro M.D. complications 03/01/2019 I95.1 Orthostatic hypotension Analia Villatoro M.D. 03/01/2019 H93.11 Tinnitus, right ear Analia Villatoro M.D. Plan of Treatment Future Appointment(s):07/31/2019 2:30 pm - Susan Savage M.D. at [facility] at [id number]/03/2019 - Susan Savage M.D.M20.012 [place] finger of left finger(s)Follow up:Follow up: 4 weeks Functional Status Description No Information Available Mental Status Description No Information Available Referrals Description No Information Available
== END 2019-07-29 08:10 | disposition home health service (06) ==
LOC: UCEAST 07:35
DX: R07.89 Other chest pain (principal); M54.2 Cervicalgia; F17.210 Nicotine dependence, cigarettes, uncomplicated; E10.9 Type 1 diabetes mellitus without complications; Z79.4 Long term (current) use of insulin
CPT/HCPCS: 99212; G0463

== ENCOUNTER 2019-07-29 08:59 | Emergency (ER) | payer BC ==
[2019-07-29 09:32] LABS: ABS Basophils 0.1 10^3/ul (0-0.2); ABS Eosinophils 0.1 10^3/ul (0-0.6); ABS Lymphocytes 1.3 10^3/ul (1.0-4.8); ABS Monocytes 0.4 10^3/ul (0-0.8); ABS Neutrophils 2.8 10^3/ul (1.5-7.7); Eosinophil % 1.1 %; Hematocrit 38 % (42-52); Hemoglobin 12.6 g/dL (14.0-18.0); Lymphocyte % 27.8 %; Mean Corpuscular HGB Conc 33 g/dL (31-36); Mean Corpuscular Hemoglobin 26 pg (27-31); Mean Corpuscular Volume 77 fL (80-94); Mean Platelet Volume 8.3 fL (7.4-10.4); Nucleated Red Blood Cells % 0.1; Platelet Count 210 10^3/uL (150-450); Red Blood Count 4.93 10^6 /uL (4.18-5.48); Red Cell Distribution Width 18 % (10-15); White Blood Count 4.6 10^3/uL (3.5-10.8)
--- NOTE | 2019-07-29 09:35 | ED ---
HPI Chest Pain - HPI Summary HPI Summary: The patient is a 48-year-old male presenting to [facility] emergency department with a chief complaint of sudden onset chest tightness this morning. He reports that he was driving to work when the tightness began in the left anterior chest, and then it radiated to the left arm. He became diaphoretic, nauseous, and dizzy with mild shortness of breath while the pain persisted for 10-15 seconds before becoming dull. He is still experiencing mild pain now rated 4/10 in severity. He endorses a headache now. He denies any fevers. He notes that he has been experiencing diarrhea for the last few days with six episodes of loose stool, and two had blood in them. He denies constipation or abdominal pain. He is not taking anticoagulants. PMHx: Type I Diabetes. FHx: cardiac disease. Heavy every day smoker, weekly EtOH, no substance use. Medications reviewed. Allergies noted. - History of Current Complaint Chief Complaint: EDChestPainROMI Time Seen by Provider: 07/29/19 09:21 Hx Obtained From: Patient Onset/Duration: Started Minutes Ago, Still Present Timing: Lasting Seconds - 10-15 Initial Severity: Moderate Current Severity: Mild Pain Intensity: 4 Pain Scale Used: 0-10 Numeric Chest Pain Location: Left Anterior Chest Pain Radiates: Yes Chest Pain Radiates To:: Arm - left Character: Dull/Aching - now, Sharp/Stabbing - initially Aggravating Factor(s): Nothing Alleviating Factor(s): Spontaneous Resolution Associated Signs and Symptoms: Positive: Chest Pain, Headaches, Dizziness, Shortness of Breath - mild, Diaphoresis, Nausea, Other: - diarrhea, blood with stool; Negative: constipation, abdominal pain. Negative: Fever - Allergy/Home Medications Allergies/Adverse Reactions: Allergies Allergy/AdvReac Type Severity Reaction Status Date / Time No Known Allergies Allergy Verified 07/29/19 07:49 Home Medications: Home Medications Modafinil TAB* [Provigil TAB*] 100 mg PO DAILY 07/29/19 [History Confirmed 07/29] PMH/Surg Hx/FS Hx/Imm Hx Endocrine/Hematology History: Reports: Hx Diabetes - INSULIN PUMP, type 1 dm Denies: Hx Thyroid Disease Cardiovascular History: Denies: Hx Hypercholesterolemia, Hx Hypertension, Hx Pacemaker/ICD, Other Cardiovascular Problems/Disorders Respiratory History: Denies: Hx Asthma, Hx Chronic Obstructive Pulmonary Disease (COPD) GI History: Denies: Hx Ulcer History: Denies: Hx Renal Disease Musculoskeletal History: Denies: Hx Rheumatoid Arthritis, Hx Osteoporosis Sensory History: Reports: Hx Contacts or Glasses Denies: Hx Hearing Aid Opthamlomology History: Reports: Hx Contacts or Glasses Psychiatric History: Reports: Hx Panic Disorder - PANIC/ANXIETY - Surgical History Surgical History: Yes Surgery Procedure, Year, and Place: VASECTOMY Infectious Disease History: No Infectious Disease History: Denies: Hx Hepatitis, Hx Human Immunodeficiency Virus (HIV), Traveled Outside the [place] in Last 30 Days - Family History Known Family History: Positive: Cardiac Disease - Hx Mother, >age 55 - Social History Alcohol Use: Weekly Hx Substance Use: No Substance Use Type: Reports: None Hx Tobacco Use: Yes - X'S 25 YRS Smoking Status (MU): Heavy Every Day Tobacco Smoker Type: Cigarettes Amount Used/How Often: 1/2 PK DAILY Review of Systems Positive: Skin Diaphoresis. Negative: Fever Positive: Chest Pain - left anterior radiating into left arm Positive: Shortness Of Breath - mild (resolved) Positive: Diarrhea - 6 episodes with 2 episodes of blood, Nausea. Negative: Abdominal Pain, Other - constipation Neurological: Other - dizziness Positive: Headache All Other Systems Reviewed And Are Negative: Yes Physical Exam - Summary Physical Exam Summary: VITAL SIGNS: Reviewed. GENERAL: Patient is a well-developed and nourished male who is lying comfortable in the stretcher. Patient is not in any acute respiratory distress. HEAD AND FACE: Normocephalic and atraumatic. EYES: PERRLA, EOMI x 2, No injected conjunctiva. EARS: Hearing grossly intact. Ear canals and tympanic membranes are WNL. MOUTH: Oropharynx within normal limits. NECK: Supple, trachea is midline, no adenopathy, no JVD. CHEST: Symmetric, no tenderness at palpation. LUNGS: Clear to auscultation bilaterally. No wheezing or crackles. CVS: RRR, S1 and S2 present, no murmurs or gallops appreciated. ABDOMEN: Soft, non-tender. No signs of distention. Positive bowel sounds. No rebound, no guarding, and no masses palpated. No abdominal bruit or pulsations. EXTREMITIES: FROM in all major joints, no edema, no cyanosis or clubbing. NEURO: Alert and oriented x 3. No acute neurological deficits. Speech is normal. SKIN: Dry and warm. RECTAL: No gross blood. No hemorrhoids. Triage Information Reviewed: Yes Vital Signs On Initial Exam: Initial Vitals Temp Pulse Resp BP Pulse Ox 97.7 F 75 19 147/84 100 07/29/19 09:03 07/29/19 09:03 07/29/19 09:03 07/29/19 09:03 07/29/19 09:03 Vital Signs Reviewed: Yes Procedures - Sedation Patient Received Moderate/Deep Sedation with Procedure: No Diagnostics - Vital Signs Vital Signs Temp Pulse Resp BP Pulse Ox 07/29/19 09:03 97.7 F 75 19 147/84 100 - Laboratory Result Diagrams: 07/29/19 09:18 07/29/19 09:18 Lab Statement: Any lab studies that have been ordered have been reviewed, and results considered in the medical decision making process. - Radiology Chest X-Ray Radiology Interpretation Completed By: Radiologist Summary of Radiographic Findings: Impression: No radiographic evidence for acute cardiopulmonary abnormality on this portable chest x-ray. ED physician has reviewed this report. - EKG 0900 Cardiac Rate: NL - 66 BPM EKG Rhythm: Sinus Rhythm Summary of EKG Findings: An EKG at 0900 reveals normal sinus rhythm at 66 BPM. Q -wave in III and aVF. No ST elevations. ED physician has reviewed and interpreted this EKG. Re-Evaluation - Re-Evaluation First Eval Re-Evaluation Time: 12:20 Change: Improved Comment: I discussed the results and plan for discharge with the patient. Chest Pain Course/Dx - Course Assessment/Plan: The patient is a 48-year-old male presenting to [facility] emergency department with a chief complaint of sudden onset chest tightness this morning. He reports that he was driving to work when the tightness began in the left anterior chest, and then it radiated to the left arm. He became diaphoretic, nauseous, and dizzy with mild shortness of breath while the pain persisted for 10-15 seconds before becoming dull. He is still experiencing mild pain now rated 4/10 in severity. He endorses a headache now. He denies any fevers. He notes that he has been experiencing diarrhea for the last few days with six episodes of loose stool, and two had blood in them. He denies constipation or abdominal pain. He is not taking anticoagulants. PMHx: Type I Diabetes. FHx: cardiac disease. Heavy every day smoker, weekly EtOH, no substance use. Medications reviewed. Allergies noted. In the ED course the patient was placed in a technology coach, IV access was obtained, IV fluids started. Patient took aspirin at home. Blood test results without any significant abnormality except for slight anemia, glucose of 288, magnesium of 1.8, alkaline phosphatase of 115 , and total protein of 6.2. EKG reveals normal sinus rhythm without any ST elevations. Chest x-ray impression: None radiographic evidence for acute cardiopulmonary abnormality. Two troponins 4 hours apart are 0.00. Heart score is equal to 2. Patient continues to be asymptomatic. I discussed all the findings and test results with the patient. Patient was instructed to return to the emergency room immediately if any of the symptoms return or worsen. Plan of care was discussed with the patient, and he understands and agrees. All questions were answered at patient satisfaction. There were no further complaints or concerns. Lung exam before discharge: CTA B/L. Good air exchange. No wheezing or crackles heard. CVS: S1 and S2 present. No murmurs appreciated. Patient is alert and oriented x 3. Patient is hemodynamically stable. Patient will be discharged home with follow up PCP in the next 2-3 days. - Chest Pain Differential Diagnosis/HQI/PQRI: Acute AK, ACS, Angina, CHF, Chest Wall, GI Disease, Lower Respiratory Infection, Pulmonary Edema - Diagnoses Provider Diagnoses: Chest pain Discharge ED - Sign-Out/Discharge Documenting (check all that apply): Patient Departure - Patient will be discharged home. - Discharge Plan Condition: Stable Disposition: HOME Patient Education Materials: Chest Pain (DC) Referrals: Sarwat Davis MD [Primary Care Provider] - 3 Days Additional Instructions: Follow up with your primary care provider in 2-3 days. Return to the emergency department for any new or worsening symptoms. - Billing Disposition and Condition Condition: STABLE Disposition: Home - Attestation Statements Document Initiated by Scribe: Yes Documenting Scribe: Reina Rousseau Provider For Whom Ana is Documenting (Include Credential): Dr. Nikolai Schroeder MD Scribe Attestation: Reina Krishnan scribed for Dr. Nikolai Schroeder MD on 07/29/19 at 1847. Scribe Documentation Reviewed: Yes Provider Attestation: The documentation as recorded by the yarielibkirk, Reina Rousseau accurately reflects the service I personally performed and the decisions made by me, Dr. Nikolai Schroeder MD Status of Ana Document: Viewed
[2019-07-29 09:41] LABS: INR 0.95 (0.82-1.09)
[2019-07-29 09:54] LABS: CKMB ng/mL 4.9 ng/mL (0.6-6.3)
[2019-07-29 09:55] LABS: Albumin 3.9 g/dL (3.2-5.2); Albumin/Globulin Ratio 1.7 (1-3); BUN/Creatinine Ratio 12.4 (8-20); Calcium 8.8 mg/dL (8.6-10.3); EGFR African American 109.9 (>60); EGFR Non-African American 90.9 (>60); Globulin 2.3 g/dL (2-4); Magnesium 1.8 mg/dL (1.9-2.7); Potassium 4.3 mmol/L (3.5-5.0); Total Bilirubin 0.4 mg/dL (0.2-1.0); Total Protein 6.2 g/dL (6.4-8.9)
[2019-07-29 10:21] LABS: TSH (Thyroid Stimulating Horm) 5.27 mcIU/mL (0.34-5.60)
[2019-07-29 12:31] LABS: Urine Appearance Clear; Urine Bilirubin Negative (Negative); Urine Blood Negative (Negative); Urine Color Yellow; Urine Glucose 3+(>=500 mg/dL) (Negative); Urine Ketones Negative (Negative); Urine Nitrite Negative (Negative); Urine Protein Negative (Negative); Urine Specific Gravity 1.011 (1.010-1.030); Urine Urobilinogen Negative (Negative)
[2019-07-29 12:42] VITALS: BP 133/77
== END 2019-07-29 12:28 | disposition home or self-care (01) ==
LOC: ED 08:59
DX: R07.9 Chest pain, unspecified (principal); E10.9 Type 1 diabetes mellitus without complications; F41.0 Panic disorder [episodic paroxysmal anxiety]; F17.210 Nicotine dependence, cigarettes, uncomplicated; Z98.52 Vasectomy status; Z79.4 Long term (current) use of insulin; Z96.41 Presence of insulin pump (external) (internal); Z79.899 Other long term (current) drug therapy
CPT/HCPCS: 36415; 71045; 80053; 81003; 82270; 82553; 83735; 83880; 84443; 84484; 85025; 85610; 93005; 99283

== ENCOUNTER 2019-08-06 06:26 | Day surgery (SDC) | payer BC ==
[~2019-08-06 06:26] MED LIST: Buffered Lidocaine 1% SYRIN* 1 ML/SYRINGE INTRADERM ONE; Dexamethasone IV* 4 MG/ML 1 ML (4 MG) IV SLOW PU ONE; Famotidine IV* 10 MG/ML 2 ML (20 mg) IV ONE; Lactated Ringers 1000 ML Bag* 1,000 ML IV SCH
[2019-08-06] MEDS ORDERED: ceFAZolin 2 GM PREMIX in ORs 2 GM/50 ML BAG ONE (06:38)
[2019-08-06] MEDS ORDERED: Dexamethasone IV* 4 MG/ML 1 ML (4 MG) ONE (06:39)
[2019-08-06] MEDS ORDERED: Famotidine IV* 10 MG/ML 2 ML (20 mg) ONE (06:40)
[2019-08-06] MEDS ORDERED: Lidocaine 1% INJ* 10 MG/ML 30 ML SDV ONE (07:14)
[2019-08-06] MEDS ORDERED: Bupivacaine 0.5% SDV PF* 30ML VIAL ONE (07:15)
[2019-08-06] MEDS ORDERED: fentaNYL* 50 MCG/ML 2 ML VIAL (100 MCG VIAL) ONE (07:18)
[2019-08-06] MEDS ORDERED: Midazolam* 1 MG/ML 5 ML VIAL (5 MG) ONE (07:18)
[2019-08-06] MEDS ORDERED: Ondansetron INJ* 2 MG/ML VIAL ONE (07:19)
[2019-08-06] MEDS ORDERED: Ketorolac INJ* 30 MG/ML 1 ML VIAL ONE (07:19)
[2019-08-06] MEDS ORDERED: Propofol* 10 MG/ML 20 ML BTL ONE (07:19)
[2019-08-06] MEDS ORDERED: Ondansetron INJ* 2 MG/ML VIAL IV PRN (07:50)
[2019-08-06] MEDS ORDERED: Naloxone* 0.4 MG/ML 1 ML VIAL IV PRN (07:50)
[2019-08-06] MEDS ORDERED: oxyCODONE/Acetamin 5/325 MG* TAB PO PRN (07:50)
[2019-08-06] MEDS ORDERED: DiMENhydriNATE IV* 50 MG/ML VIAL IV PUSH PRN (07:50)
[2019-08-06 08:21] VITALS: BP 121/66
--- NOTE | 2019-08-06 10:26 | OP ---
DATE OF OPERATION: 08/06/19 [facility] DATE OF : 68 SURGEON: Susan Savage MD TACTICAL DEBRIEFER OFFICER: GENEVIEVE Bell ANESTHESIA: Local MAC. PRE-OP DIAGNOSIS: Left small finger mallet finger. POST-OP DIAGNOSIS: Left small finger mallet finger. OPERATIVE PROCEDURE: Left small finger mallet repair. ESTIMATED BLOOD LOSS: Zero. TOURNIQUET TIME: About 20 minutes. INDICATION FOR PROCEDURE: Fili is a 48-year-old male who suffered an injury of his left little finger and he has a mallet finger. There is no bony component. He has failed conservative treatment. He has been in a splint for 6 or 8 weeks without any improvement in the alignment of his finger and he presents for mallet finger repair. DESCRIPTION OF PROCEDURE: The patient was brought to the operating room, was given a sedation anesthetic and a digital block with 10 cc of 1% plain lidocaine. The skin of his left upper extremity was prepped and draped in the usual sterile fashion. A Tourni-Cot was placed on the left little finger and left in place for the duration of the procedure. An H-shaped incision was made on the dorsal aspect of the DIP joint. We could see where the tendon had healed with significantly lengthened scar tissue. This was slightly debrided by making some longitudinal incisions in the scar and then when I brought the DIP joint into full extension, the original tendon ends were reapproximated. Two 0.035-inch K-wires were driven across the DIP joint to hold the joint in full extension and slight hyperextension and their position was checked on the C -arm in the AP and lateral views and found to be satisfactory. The tendon was then reapproximated with 4.0 nylon suture in interrupted fashion. The wound was copiously irrigated with saline. The skin edges were reapproximated with 4- 0 nylon suture. The wound was dressed with Xeroform, 4x4, Nick, Coban, and an Alumafoam splint. The patient tolerated the procedure well and was brought to the recovery room in good condition. [id number]/[facility] #: [id number] [facility] HEALTHGhanshyam
== END 2019-08-06 09:26 | disposition home or self-care (01) ==
LOC: OREAST 06:26
PROVIDERS: ATTEND Orthopaedic Surgery
DX: M20.012 Mallet finger of left finger(s) (principal); E10.9 Type 1 diabetes mellitus without complications; Z79.4 Long term (current) use of insulin; R94.31 Abnormal electrocardiogram [ECG] [EKG]; I44.1 Atrioventricular block, second degree; F17.210 Nicotine dependence, cigarettes, uncomplicated; F41.9 Anxiety disorder, unspecified
CPT/HCPCS: 76000; C1776; J0690; J1100; J1885; J2250; J2405; J2704; J3010; J3490

== ENCOUNTER 2019-08-18 14:50 | Emergency (ER) | payer BC ==
--- OUTSIDE RECORDS SUMMARY | 2019-08-18 15:15 | XMS REPORT | Continuity of Care Document ---
:1970 External Reference #:[id number] Author Name Susan Savage M.D. 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 03/23/2017 Injection Immunizations Description No Information Available Vital Signs Date Vital Result Comment 08/01/2019 11:39am Height 72 inches 6'0" Weight 226.00 lb Heart Rate 72 /min BP Systolic Sitting 144 mmHg BP Diastolic Sitting 90 mmHg Respiratory Rate 16 /min Pain Level 0 O2 % BldC Oximetry 98 % BMI (Body Mass Index) 30.6 kg/m2 07/03/2019 1:18pm Height 72 inches 6'0" Weight 226.75 lb Heart Rate 72 /min BP Systolic 148 mmHg BP Diastolic 74 mmHg Respiratory Rate 16 /min Body Temperature 98.1 F Pain Level 3 BMI (Body Mass Index) 30.7 kg/m2 Results Description No Information Available Procedures Date Code Description Status 03/01/2019 29711 EKG Tracing & Interpretation Completed Medical Devices Description No Information Available Encounters Type Date Location Provider Dx Diagnosis Office Visit 07/03/2019 [facility] Ssuan Savage, M20.012 Mallet finger of 1:00p at [place] Aayush.DJaja left finger(s) Office Visit 06/06/2019 [facility] Rachel Quiroz, M20.012 Mallet finger of 8:15a at [place] RPA-C left finger(s) Office Visit 03/01/2019 [facility] Analia Villatoro, Z82.49 Family hx of 1:10p Of [facility] Erica ischem heart dis and oth dis of the [facility] sys Z72.0 Tobacco use E10.8 Type 1 diabetes mellitus with unspecified complications I95.1 Orthostatic hypotension H93.11 Tinnitus, right ear Assessments Date Code Description Provider 08/01/2019 M20.012 Mallet finger of left finger(s) Susan Savage M.D. 07/03/2019 M20.012 Mallet finger of left finger(s) Susan Savage M.D. 06/06/2019 M20.012 Mallet finger of left finger(s) Rachel Quiroz, [facility] 03/01/2019 Z82.49 Family history of ischemic heart disease and Analia Villatoro M.D. other diseases 03/01/2019 Z72.0 Tobacco use Analia Villatoro M.D. 03/01/2019 E10.8 Type 1 diabetes mellitus with unspecified Analia Villatoro M.D. complications 03/01/2019 I95.1 Orthostatic hypotension Analia Villatoro M.D. 03/01/2019 H93.11 Tinnitus, right ear Analia Villatoro M.D. Plan of Treatment Future Appointment(s):08/06/2019 12:00 pm - Susan Savage M.D. at [facility] at Kwtwco0908/22/2019 3:00 pm - Susan Savage M.D. at [facility] at [id number]/01/2019 - Susan Savage M.D.M20.012 Mallet finger of left finger(s)Follow up:Follow up: 9-10 days postop Follow up: Functional Status Description No Information Available Mental Status Description No Information Available Referrals Description No Information Available
--- OUTSIDE RECORDS SUMMARY | 2019-08-18 15:15 | XMS REPORT | Continuity of Care Document ---
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 Diabetes & Metabolism Problems Active Problems Provider [...] 108(90Base) mcg/Act Aerosol Modafinil 1 tablet po [place], Amandeep, 100mg Tablets daily Desvenlafaxine Succinate take 1 [...] Available Procedures Date Code Description Status 03/01/2019 42247 EKG Tracing & Interpretation Completed Medical Devices Description No Information Available Encounters Type Date Location Provider Dx Diagnosis Office Visit 07/03/2019 [facility] Susan Savage, M20.012 Mallet finger of 1:00p at [place] M.DJaja left finger(s) Office Visit 06/06/2019 [facility] Rachel Quiroz M20.012 Mallet finger of 8:15a at [place] RPA-C left finger(s) Office Visit 03/01/2019 [facility] Analia Villatoro, Z82.49 Family hx of 1:10p Of [facility] Erica ischem heart dis and oth dis of the circ sys Z72.0 Tobacco use E10.8 Type 1 diabetes mellitus with unspecified complications I95.1 Orthostatic hypotension H93.11 Tinnitus, right ear Assessments Date Code Description Provider 08/01/2019 M20.012 Mallet finger of left finger(s) Susan Savage M.D. 07/03/2019 M20.012 Mallet finger of left finger(s) Susan Savage M.D. 06/06/2019 M20.012 Mallet finger of left finger(s) Rachel Quiroz, RPA-C 03/01/2019 Z82.49 Family history of ischemic heart disease and Analia Villatoro M.D. other diseases 03/01/2019 Z72.0 Tobacco use Analia Villatoro M.D. 03/01/2019 E10.8 Type 1 diabetes mellitus with unspecified Analia Villatoro M.D. complications 03/01/2019 I95.1 Orthostatic hypotension Analia Villatoro M.D. 03/01/2019 H93.11 Tinnitus, right ear Analia Villatoro M.D. Plan of Treatment Future Appointment(s):08/06/2019 12:00 pm - Susan Savage M.D. at [facility] at [id number]/22/2019 3:00 pm - Susan Savage M.D. at [facility] at [id number]/01/2019 - Susan Savage M.D.M20.012 Mallet finger of left finger(s)Follow up:Follow up: 9-10 days postop Follow up: Functional Status Description No Information Available Mental Status Description No Information Available Referrals Description No Information Available
--- NOTE | 2019-08-18 15:24 | ED ---
ED Suture/Wound Check - HPI Summary HPI Summary: 48-year-old male 10 days status post mallet finger repair of the left fifth finger by Dr. Savage presents to the emergency department today for wound check and bandage. Patient states he was instructed to keep his dressing dry however yesterday he was working on his car and soaked his bandage with antifreeze. She states that it happened he soaked his hand and stressing and water and hydrogen peroxide to clean it. Patient currently states he has full range of motion and sensation. The patient denies fever, chest pain, abdominal pain, urination, rash, purulent discharge from the wound, wound dehiscence. Family history and social history noncontributory. - History Of Current Complaint Chief Complaint: EDLacSutureRecheck Stated Complaint: NEEDS TO HAVE BANDAGE CHANGE Time Seen by Provider: 08/18/19 15:09 Hx Obtained From: Patient Onset/Duration: Gradual Onset Surgical Site: Left fifth finger Severity: Moderate Pain Intensity: 7 Pain Scale Used: 0-10 Numeric Procedure Type: mallet finger repair Surgery Date: 08/08/19 Hands: 1 - Surgical pinning for mallet finger - Allergies/Home Medications Allergies/Adverse Reactions: Allergies Allergy/AdvReac Type Severity Reaction Status Date / Time No Known Allergies Allergy Verified 08/06/19 06:48 PMH/Surg Hx/FS Hx/Imm Hx Endocrine/Hematology History: Reports: Hx Diabetes - INSULIN PUMP, type 1 dm Denies: Hx Thyroid Disease Cardiovascular History: Denies: Hx Hypercholesterolemia, Hx Hypertension, Hx Pacemaker/ICD, Other Cardiovascular Problems/Disorders Respiratory History: Denies: Hx Asthma, Hx Chronic Obstructive Pulmonary Disease (COPD) GI History: Denies: Hx Ulcer History: Denies: Hx Renal Disease Musculoskeletal History: Denies: Hx Rheumatoid Arthritis, Hx Osteoporosis Sensory History: Reports: Hx Contacts or Glasses - glasses Denies: Hx Hearing Aid Opthamlomology History: Reports: Hx Contacts or Glasses - glasses Psychiatric History: Reports: Hx Anxiety, Hx Depression, Hx Panic Disorder - PANIC/ANXIETY - Cancer History Hx Chemotherapy: No - Surgical History Surgery Procedure, Year, and Place: VASECTOMY Hx Anesthesia Reactions: No Infectious Disease History: No Infectious Disease History: Denies: Hx Hepatitis, Hx Human Immunodeficiency Virus (HIV), Traveled Outside the [place] in Last 30 Days - Family History Known Family History: Positive: Cardiac Disease - Hx Mother, >age 55 - Social History Alcohol Use: Daily Hx Substance Use: No Substance Use Type: Reports: None Hx Tobacco Use: Yes - X'S 25 YRS Smoking Status (MU): Heavy Every Day Tobacco Smoker Type: Cigarettes Amount Used/How Often: 3/4 PK DAILY, smoked for 30 years Review of Systems Constitutional: Negative Eyes: Negative ENT: Negative Cardiovascular: Negative Respiratory: Negative Gastrointestinal: Negative Genitourinary: Negative Positive: Arthralgia, Myalgia Skin: Negative Neurological: Negative Psychological: Normal All Other Systems Reviewed And Are Negative: Yes Physical Exam - Summary Physical Exam Summary: Inspection of the left fifth digit reveals surgical pins of the distal digit. There is also evidence of multiple small approximated lacerations to the dorsal aspect of the fifth digit with suture in place. Skin on the fifth digit underlying the bandage was very macerated and pale. No evidence of secondary infection or drainage. Triage Information Reviewed: Yes Vital Signs On Initial Exam: Initial Vitals Temp Pulse Resp BP Pulse Ox 97.8 F 75 18 132/88 98 08/18/19 14:50 08/18/19 14:50 08/18/19 14:50 08/18/19 14:50 08/18/19 14:50 Vital Signs Reviewed: Yes Appearance: Positive: Well-Appearing, No Pain Distress, Well-Nourished Skin: Positive: Warm, Skin Color Reflects Adequate Perfusion Eyes: Positive: EOMI, TIMI ENT: Positive: Normal ENT inspection, Hearing grossly normal Respiratory/Lung Sounds: Positive: Clear to Auscultation, Breath Sounds Present Cardiovascular: Positive: Normal, RRR, S1, S2 Musculoskeletal: Positive: Strength/ROM Intact Neurological: Positive: Sensory/Motor Intact, Alert, Oriented to Person Place, Time, Normal Gait, Speech Normal Psychiatric: Positive: Normal AVPU Assessment: Alert Procedures - Sedation Patient Received Moderate/Deep Sedation with Procedure: No Diagnostics - Vital Signs Vital Signs Temp Pulse Resp BP Pulse Ox 08/18/19 14:50 97.8 F 75 18 132/88 98 - Laboratory Lab Statement: Any lab studies that have been ordered have been reviewed, and results considered in the medical decision making process. Course/Dx - Course Course Of Treatment: Patient was seen and examined vitals were noted. Patient' s dressing was removed and wound care was done by Jenny Saha, registered nurse. Dressing was reapplied by Liang Huston Physician operator assistant i cementing. Patient was told to keep the wound clean and to follow-up with his surgeon, Dr. Savage within 2 days for further evaluation and management of symptoms. - Differential Diagnoses Differential Diagnoses: Abscess, Cellulitis, Dehiscence, Healing Wound - Clinical Impression Provider Diagnoses: Healing wound Discharge ED - Sign-Out/Discharge Documenting (check all that apply): Patient Departure - Discharge Plan Condition: Stable Disposition: HOME Patient Education Materials: Acute Wounds (ED) Referrals: Sarwat Davis MD [Primary Care Provider] - Susan Savage MD [Medical Doctor] - 3 Days Additional Instructions: your wound was cleaned and re-bandaged in the emergency department. Please keep this bandage dry and follow-up with Dr. Savage in 3-5 days for further evaluation and management. Please return to the emergency department immediately if you develop any new or worsening symptoms. - Billing Disposition and Condition Condition: STABLE Disposition: Home - Attestation Statements Provider Attestation: I was available for consultation for this patient. I did not evaluate the patient or participate in any medical decision making or disposition decisions unless I am specifically named in the chart as having consulted on the patient. If I have consulted on the patient, please see my own ED note on the patient encounter. Araon Alonso MD Addendum entered and electronically signed by Liang Huston PA 08/18/19 15:55: ED Addendum Addendum: Premade splint applied to left 5th finger, metal, by GENEVIEVE Coon.
[2019-08-18 15:58] VITALS: BP 129/81
== END 2019-08-18 15:57 | disposition home or self-care (01) ==
LOC: ED 14:50
DX: S61.207D Unspecified open wound of left little finger without damage to nail, subsequent encounter (principal); X58.XXXD Exposure to other specified factors, subsequent encounter; E10.9 Type 1 diabetes mellitus without complications; Z96.41 Presence of insulin pump (external) (internal); Z79.4 Long term (current) use of insulin; F41.9 Anxiety disorder, unspecified; F32.9 Major depressive disorder, single episode, unspecified; F17.210 Nicotine dependence, cigarettes, uncomplicated; Z98.52 Vasectomy status
CPT/HCPCS: 99282